=== PATIENT | female | born 1945 | race Caucasian/White ===

== ENCOUNTER → 2021-01-20 08:15 | Outpatient (BNVA) | payer MEDICARE, OTHER, SELFPAY | PROVIDERS: PCP Internal Medicine; Visit Provider Nurse Practitioner Family | DX: Z20.822 Contact with and (suspected) exposure to COVID-19 (principal) | CPT/HCPCS: 87426 ==

== ENCOUNTER → 2021-03-16 09:20 | Outpatient (BNVA) | payer MEDICARE, OTHER, SELFPAY | PROVIDERS: PCP Internal Medicine; Visit Provider Nurse Practitioner Family | DX: Z20.822 Contact with and (suspected) exposure to COVID-19 (principal) | CPT/HCPCS: 87426 ==

== ENCOUNTER → 2021-04-13 11:15 | Outpatient (BNVA) | payer MEDICARE, OTHER, SELFPAY | PROVIDERS: PCP Internal Medicine; Visit Provider Nurse Practitioner Family | DX: Z20.822 Contact with and (suspected) exposure to COVID-19 (principal) | CPT/HCPCS: 87426 ==

== ENCOUNTER 2021-05-12 09:17 | Outpatient (CLI) | payer MEDICARE, OTHER, SELFPAY ==
[2021-05-12 11:08] LABS: SARS Covid-2 Antigen Negative (Negative)
== END 2021-05-12 09:18 | disposition home or self-care (01) ==
LOC: LAB 09:26
PROVIDERS: PCP Internal Medicine; Visit Provider Nurse Practitioner Family
DX: Z20.822 Contact with and (suspected) exposure to COVID-19 (principal)
CPT/HCPCS: 87426

== ENCOUNTER 2023-09-23 10:24 | Emergency (ER) | payer MEDICARE, OTHER, SELFPAY ==
[2023-09-23 11:12] VITALS: BP 156/84; PULSE 63; RESP 16; TEMP 36.7; O2SAT 96; BMI 28.4
[2023-09-23 11:19] VITALS: BP 189/90; PULSE 64; RESP 16; O2SAT 95
--- NOTE | 2023-09-23 11:37 | CT_ITS ---
WS: [id number] CT ABDOMEN AND PELVIS NONCONTRAST HISTORY: flank pain TECHNIQUE: Imaging performed through the abdomen and pelvis. Coronal and sagittal reformats are submi tted. All CT scans at [facility] use at least one of these dose optimization techniques: auto mated exposure control; mA and/or kV adjustment per patient size (includes targeted exams where dose is matched to clinical indication); or iterative reconstruction. DLP: 747.73 mGy.cm COMPARISON: None available. Lower thorax: Lung bases are clear. Visualized heart is normal. Small hiatal hernia. Liver: Normal size liver. No mass or bile duct dilatation. Gallbladder: Prior cholecystectomy. No bile duct dilatation. Pancreas: Normal size and attenuation. Normal pancreatic duct. No pancreatitis or mass. Spleen: Normal. Adrenal glands: Normal RIGHT adrenal gland. 1.9 cm LEFT adrenal adenoma. Right kidney: Normal size kidney with no mass or hydronephrosis. Left kidney: Normal size kidney. Mild perinephric inflammation. 2.8 x 2.9 cm cyst superior medial kid [place]. There is mild dilatation of the central renal pelvis secondary to an 8 mm calcification at the U P junction. No additional calcifications in the renal pelvis. Ureter distal to this calcification is normal caliber. Aorta: Mild atherosclerosis abdominal aorta with no aneurysm. No free fluid, intraperitoneal air or significant lymphadenopathy. GI tract: Normal noncontrast imaging of the stomach, small bowel and colon. No obstruction or wall th ickening. Normal appendix. Abdominal wall: Small umbilical hernia contains fat only. Pelvis: No free fluid or adenopathy. Prior hysterectomy. Osseous structures: L2 vertebral body hemangioma. Subtle sclerosis superior RIGHT femoral head is pro bably early changes of developing osteonecrosis. CT/CT abdomen pelvis wo con [id number] IMPRESSION: 1. Mild LEFT hydronephrosis secondary to an 8 mm calcification at the UP junct ion with perinephric stranding. 2. Additional LEFT renal cyst. No additional calcifications. 3. Negative RIGHT kidney. 4. Prior cholecystectomy. 5. Normal appendix. 6. No adenopathy. 7. LEFT adrenal adenoma, 1.9 cm.
--- NOTE | 2023-09-23 11:38 | W.ED.BACK ---
HPI - Back Pain/Injury General: Chief Complaint: Back Pain/Injury Stated Complaint: lower back pain, vomitting Time Seen by Provider: 09/23/23 11:32 History of Present Illness: 78-year-old female with a history of anxiety who presents to the emergency room with sudden onset of left flank pain that started this morning about 7 AM. She has had nausea and vomiting and feels like she needs to urinate but cannot. No fevers. She is never had anything like this before. No chest pain. No cough. No altered mental status. Review of Systems Narrative: Constitutional symptoms: Negative except as documented in HPI. Skin symptoms: Negative except as documented in HPI. Eye symptoms: Negative except as documented in HPI. ENMT symptoms: Negative except as documented in HPI. Respiratory symptoms: Negative except as documented in HPI. Cardiovascular symptoms: Negative except as documented in HPI. Gastrointestinal symptoms: Negative except as documented in HPI. Genitourinary symptoms: Negative except as documented in HPI. Musculoskeletal symptoms: Negative except as documented in HPI. Neurologic symptoms: Negative except as documented in HPI. Psychiatric symptoms: Negative except as documented in HPI. Endocrine symptoms: Negative except as documented in HPI. PFSH ED PFSH: Social History Smoking and tobacco/nicotine status: never used tobacco/nicotine Physical Exam Narrative: EXAM NARRATIVE: General: Alert, no acute distress. Skin: Warm, dry. Head: Normocephalic, atraumatic. Neck: Supple, trachea midline. Eye: Extraocular movements are intact. Ears, nose, mouth and throat: mucosa moist. Cardiovascular: Regular, Normal peripheral perfusion. Respiratory: Lungs are clear to auscultation, respirations are non-labored, breath sounds are equal, Symmetrical chest wall expansion. Gastrointestinal: Soft, left flank pain, Non distended, Normal bowel sounds. Musculoskeletal: Normal ROM, no deformity. Neurological: Alert and oriented, No focal neurological deficit observed. Psychiatric: Cooperative, appropriate mood & affect. Course Vital Signs: Vital signs: Vital Signs Temperature 98.1 F 09/23/23 11:12 Pulse Rate 61 09/23/23 14:00 Respiratory Rate 16 09/23/23 14:00 Blood Pressure 178/70 09/23/23 14:00 Pulse Oximetry 94 09/23/23 14:00 Oxygen Delivery Me thod Room Air 09/23/23 14:00 MDM - Back Pain/Injury Medical Decision Making Medical decision making: Differential diagnosis including but not limited to and based on the above HPI, review of systems and physical exam: Ureterolithiasis. Urinary tract infection. Appendicitis. Cholecystis. Musculoskeletal / back pain. Pyelonephritis Orders placed to evaluate differential diagnosis based on the above differential, HPI and physical exam Lab Review: Laboratory results were reviewed and interpreted by myself the emergency room physician. Mild leukocytosis with a white count of 10,000. Hemoglobin is stable at 13.9. BUN and creatinine are 23 and 0.7 which would indicate some mild dehydration. Urinalysis is positive for too numerous to count red cells. Just a few white so I will go ahead and give her some antibiotics CT of the abdomen and pelvis without contrast: This shows a proximal left 8 mm kidney stone with mild hydronephrosis. This was reviewed and interpreted by myself the emergency room physician. I also reviewed the radiology report. I reviewed the patient's medical record. Reexamination: Patient says her pain is somewhat improved but does request more pain medication prior to discharge. No altered mental status. No focal motor deficits. No increased work of breathing. We discussed the findings. We discussed urology follow-up and she request Dr. Driver in [place] and I have spoken with him. Consultation: I spoke with Dr. Fred Driver at [place]. He is urologist. He will see the patient in the next 2 days. Assessment and plan: Ureterolithiasis ?IV fluids, IV Toradol 15 mg, IV morphine and another dose of IV Zofran. ?IV Rocephin - Discharged home - Discussed findings and plan with patient. Answered any questions. - All laboratory values were reviewed and interpreted personally by myself, the ER physician - All imaging was reviewed and interpreted personally by myself, the ER physician. - Evaluation and treatment of this problem were appropriate in the emergency setting Labs 09/23/23 11:26 09/23/23 11:26 Radiology Impressions Abdomen/Pelvis CT 09/23/23 11:37 IMPRESSION: 1. Mild LEFT hydronephrosis secondary to an 8 mm calcification at the UP junction with perinephric stranding. 2. Additional LEFT renal cyst. No additional calcifications. 3. Negative RIGHT kidney. 4. Prior cholecystectomy. 5. Normal appendix. 6. No adenopathy. 7. LEFT adrenal adenoma, 1.9 cm. Laboratory Results WBC 10.19 10^3/uL (3.29-11.43) 09/23/23 11: RBC 4.96 10^6/uL (3.85-5.65) 09/23/23 11:26 Hgb 13.90 g/dL (11.27-16.99) 09/23/23 11:26 Hct 44.2 % (36-47) 09/23/23 11:26 MCV 89.1 fl (85-98) 09/23/23 11:26 MCH 28.0 pg (27-33) 09/23/23 11:26 MCHC 31.4 g/dL (30-55) 09/23/23 11: RDW 13.1 % (12.1-15.1) 09/23/23 11: Plt Count 297 10^3/cmm (157-399) 09/23/23 11: MPV 10.4 fL (7.4-10.4) 09/23/23 11:26 Neut % (Auto) 86.6 % 09/23/23 11:26 Lymph % (Auto) 9.7 % 09/23/23 11:26 [place] % (Auto) 3.0 % 09/23/23 11:26 Eos % (Auto) 0.0 % 09/23/23 11: Baso % (Auto) 0.3 % 09/23/23 11: Neut # (Auto) 8.82 10^3/uL (1.8-7.7) H 09/23/23 11:26 Lymph # (Auto) 1.0 10^3/uL (0.8-4.8) 09/23/23 11:26 [place] # (Auto) 0.3 10^3/uL (0.2-0.9) 09/23/23 11:26 Eos # (Auto) 0.0 10^3/uL (0.0-0.8) 09/23/23 11:26 Baso # (Auto) 0.0 10^3/uL (0.0-0.1) 09/23/23 11:26 Nucleated RBC % (auto) 0 % 09/23/23 11:26 Nucleated RBCs # 0.0 /100WBC 09/23/23 11:26 Sodium 141 mmol/L (136-145) 09/23/23 11:26 Potassium 4.3 mmol/L (3.5-5.1) 09/23/23 11:26 Chloride 110 mmol/L (98-107) H 09/23/23 11:26 Carbon Dioxide 21 mmol/L (22-29) L 09/23/23 11:26 Anion Gap 14.3 (5-19) 09/23/23 11:26 BUN 23 mg/dL (8-23) 09/23/23 11:26 Creatinine 0.7 mg/dL (0.5-0.9) 09/23/23 11:26 GFR Calculation Not Reportable 09/23/23 11:26 Glucose 116 mg/dL (65-115) H 09/23/23 11:26 Calculated Osmolality 297 mOsm/kg (285-295) H 09/23/23 11:26 Lactic Acid 0.9 mmol/L (0.5-2.2) 09/23/23 11:26 Calcium 9.4 mg/dL (8.5-10.5) 09/23/23 11:26 Total Bilirubin 0.3 mg/dL (0.15-1.2) 09/23/23 11:26 AST 17 U/L (0-32) 09/23/23 11:26 ALT 14 U/L (0-33) 09/23/23 11:26 Alkaline Phosphatase 86 U/L (35-105) 09/23/23 11:26 C-Reactive Protein 3.0 mg/L (0.0-4.9) 09/23/23 11:26 Total Protein 7.2 g/dL (6.6-8.7) 09/23/23 11:26 Albumin 4.3 g/dL (3.5-5.2) 09/23/23 11:26 Globulin 2.9 g/dL (1.3-4.6) 09/23/23 11:26 Lipase 33 U/L (13-60) 09/23/23 11:26 Urine Color Dark yellow (Yellow) 09/23/23 12:31 Urine Appearance Cloudy (CLEAR) A 09/23/23 12:31 Urine pH 5 (5-7) 09/23/23 12:31 Ur Specific [place] 1.025 (1.005-1.030) 09/23/23 12:31 Urine Protein 2+ (Negative) H 09/23/23 12:31 Urine Glucose (UA) Norm (Normal) 09/23/23 12:31 Urine Ketones 1+ (Negative) H 09/23/23 12:31 Urine Blood 3+ (Negative) H 09/23/23 12:31 Urine Nitrate Negative (Negative) 09/23/23 12:31 Urine Bilirubin Neg (Negative) 09/23/23 12:31 Urine Urobilinogen 1 mg/dL (Negative) H 09/23/23 12:31 Ur Leukocyte Esterase Trace (Negative) H 09/23/23 12:31 Urine RBC Too numerous to cnt /hpf (0-2) H 09/23/23 12:31 Urine WBC 5-10 /hpf (0-5) H 09/23/23 12:31 Ur Squamous Epith Cells 5-10 /hpf (0-5) H 09/23/23 12:31 Amorphous Sediment Not Reportable 09/23/23 12:31 Urine Bacteria 1+ /hpf (NONE) H 09/23/23 12:31 All radiology interpretation(s) finalized by discharge Discharge Plan Discharge Patient Disposition: Home Clinical Impression: Ureterolithiasis Condition: Stable Prescriptions: New hydrocodone-acetaminophen 5-325 mg tablet 1 tab PO Q6H PRN (Reason: pain) Qty: 20 0RF ondansetron 8 mg tablet,disintegrating 8 mg PO .q6 PRN (Reason: nausea and vomiting) Qty: 14 0RF Flomax 0.4 mg capsule 0.4 mg PO DAILY Qty: 30 0RF cephalexin 500 mg capsule 500 mg PO BID 10 Days Qty: 20 0RF Miralax 17 gram/dose powder 17 g PO DAILY Qty: 510 0RF Rx Instructions: Take 1 scoop daily while taking pain medications. No Action citalopram 10 mg tablet 10 mg PO DAILY Discharge Orders: Discharge ED (Routine); Ordered 09/23/23 Ordered By: Candida Lam Referrals: Fred Driver [Referring] - (Dr. Driver will contact you within the next 1 to 2 days with an appointment. If you do not hear from him please call his office to schedule the appointment.) Asher Hill DO [Primary Care Provider] - 4-7 days Discharge Diet: Usual diet Discharge Activity: Increase activity as tolerated Patient Instructions: Ureteral Stones (ED), Opioid Safety Activity Restrictions/Additional Instructions: Call for appointment with urology. If fever (temp >100.4) develops return to the emergency room immediately, as this is an emergency. Take nausea medication prior to taking pain medications. You have been screened and evaluated and felt safe for discharge. Health conditions do change or evolve sometimes and as such it is important that you follow up with your Primary Doctor to be re checked, 3-5 days is a general good time frame for follow up. You are always welcome to return to the ED for re assessment if your symptoms are worsening or you have new concerns Coding Level of Care Code ED Forensic Photographer for Mariano Duggan
[2023-09-23 11:40] LABS: Basophils % 0.3 %; Hematocrit 44.2 % (36-47); Lymphocytes % 9.7 %; Mean Corpuscular HGB Conc 31.4 g/dL (30-55); Mean Corpuscular Volume 89.1 fl (85-98); Mean Platelet Volume 10.4 fL (7.4-10.4); Monocytes # 0.3 10^3/uL (0.2-0.9); Neutrophils # 8.82 10^3/uL (1.8-7.7); Neutrophils % 86.6 %; Nucleated Red Blood Cells % 0 %; Platelet Count 297 10^3/cmm (157-399); Red Blood Count 4.96 10^6/uL (3.85-5.65); Red Cell Distribution Width 13.1 % (12.1-15.1); White Blood Count 10.19 10^3/uL (3.29-11.43)
[2023-09-23 11:54] LABS: Lactic Sepsis W/Reflex 0.9 mmol/L (0.5-2.2)
[2023-09-23 11:55] LABS: Alanine Aminotransferase 14 U/L (0-33); Albumin Level 4.3 g/dL (3.5-5.2); Alkaline Phosphatase 86 U/L (35-105); Anion Gap 14.3 (5-19); Aspartate Amino Transferase 17 U/L (0-32); Blood Urea Nitrogen 23 mg/dL (8-23); Calcium 9.4 mg/dL (8.5-10.5); Carbon Dioxide 21 mmol/L (22-29); Chloride 110 mmol/L (98-107); Globulin 2.9 g/dL (1.3-4.6); Glucose 116 mg/dL (65-115); Lipase 33 U/L (13-60); Osmolality Calculated 297 mOsm/kg (285-295); Potassium 4.3 mmol/L (3.5-5.1); Sodium 141 mmol/L (136-145); Total Bilirubin 0.3 mg/dL (0.15-1.2); Total Protein 7.2 g/dL (6.6-8.7)
[2023-09-23] MEDS: sodium chloride 0.9% 1,000 ML 999 ML IV (12:20)
[2023-09-23] MEDS: ondansetron 2 mg/ML SDV 2 mL 8 MG IVP (12:20)
[2023-09-23] MEDS: ketorolac 30 mg/mL INJ 15 MG IVP (12:20)
[2023-09-23 13:17] LABS: Blood Urine 3+ (Negative); Glucose Urine UA Norm (Normal); Ketones Urine 1+ (Negative); Protein Urine 2+ (Negative); Specific Gravity, Urine 1.025 (1.005-1.030); Urine Appearance Cloudy (CLEAR); Urine Color Dark Yellow (Yellow); pH Urine 5 (5-7)
[2023-09-23 13:18] LABS: Bacteria Urine 1+ /hpf; Bilirubin Urine Neg (Negative); Leukocyte Esterase Urine Trace (Negative); Nitrate Urine Negative (Negative); RBC Urine TOO NUMEROUS TO CNT /hpf (0-2); Urobilinogen Urine 1 mg/dL (Negative)
[2023-09-23 13:19] LABS: Add Urine Culture? Yes
[2023-09-23 14:00] VITALS: BP 178/70; PULSE 61; RESP 16; O2SAT 94
[2023-09-23] MEDS: cefTRIAXone 1,000 MG in water for injection-sterile 2.1 ML 2.10000000000000009 MG IM (14:30)
[2023-09-23] MEDS: ondansetron 2 mg/ML SDV 2 mL 4 MG IVP (14:37)
[2023-09-23] MEDS: morphine 4 mg/mL SDV 1 mL IVP (14:37)
[2023-09-23 15:04] VITALS: BP 161/76; PULSE 63; RESP 16; TEMP 36.7; O2SAT 95
--- NOTE | 2023-09-23 15:42 | DCPLANNER ---
appt made with [facility] 09/23 @130pm. [employer] and faxed referral
== END 2023-09-23 15:05 | disposition home or self-care (01) ==
PROVIDERS: Emergency Provider Emergency Medicine; PCP Internal Medicine
DX: N13.2 Hydronephrosis with renal and ureteral calculous obstruction (principal)
CPT/HCPCS: 36415; 74176; 80053; 81001; 83605; 83690; 85025; 86140; 87040; 87086; 96372; 96374; 96375; 96376; 99285; J0696; J1885; J2270; J2405; J7030